=== PATIENT | female | born 1970 | race African-American/Black ===

== ENCOUNTER 2020-12-01 10:22 | Inpatient (IN) | payer OTHER ==
[2020-12-01] MEDS ORDERED: PIPERACILLIN/TAZOB 4.5 GM 4.5 GM in DEXTROSE 5%-WATER 100 ML IVPB ONE (11:44)
[2020-12-01] MEDS ORDERED: ACETAMINOPHEN 325 MG TABLET (FP) PO ONE (11:45)
[2020-12-01] MEDS ORDERED: VANCOMYCIN 1 GM in D5W (PRE-DOCKED) 1,000 MG/250 ML IVPB ONE (11:45)
[2020-12-01] MEDS ORDERED: ACETAMINOPHEN 325 MG TABLET (FP) ONE (11:57)
[2020-12-01] MEDS ORDERED: VANCOMYCIN 1 GRAM (PRE-DOCKED) 1,000 MG/250 ML BAG IVPB ONE (11:58)
[2020-12-01] MEDS ORDERED: PIPERACILLIN/TAZOB 4.5 GM 4.5 GM/100 ML BAG IVPB ONE ×2 (11:58→21:34)
[2020-12-01 13:27] LABS: BASO % 0.5 % (0-2.0); EOS % 2.3 % (0-4.5); HEMATOCRIT 30.4 % (32.4-45.2); HEMOGLOBIN 10.1 GM/dL (10.7-15.3); LYMPH % 21.2 % (8-40); MCH 29.3 pg (25.7-33.7); MCHC 33.2 g/dl (32.0-36.0); MEAN CELL VOLUME 88.2 fl (80-96); MEAN PLT VOLUME 7.9 fl (7.5-11.1); MONO % 4.4 % (3.8-10.2); NEUT % 71.6 % (42.8-82.8); PLATELET COUNT 442 K/MM3 (134-434); RBC 3.45 M/mm3 (3.60-5.2); RDW 14.6 % (11.6-15.6); WHITE BLOOD COUNT 7.1 K/mm3 (4.0-10.0)
[2020-12-01 13:38] LABS: INR 1.09 (0.83-1.09); PROTHROMBIN TIME (PATIENT) 13.4 SEC (9.7-13.0)
[2020-12-01 13:41] LABS: ACTIVATED PTT 33.5 SECONDS (25.2-36.5)
[2020-12-01 14:30] LABS: ALBUMIN 2.9 g/dl (3.4-5.0); BILIRUBIN,TOTAL 0.3 mg/dL (0.2-1); BLOOD UREA NITROGEN 21.9 mg/dL (7-18); CALCIUM 8.6 mg/dL (8.5-10.1); TOT PROT 7.5 g/dl (6.4-8.2)
[2020-12-01] MEDS: INSULIN SLIDING SCALE (NOVOLOG) 1 VIAL SQ SCH ×2 (16:38→22:02)
[2020-12-01] MEDS ORDERED: PIPERACILLIN/TAZOB 4.5 GM 4.5 GM in DEXTROSE 5%-WATER 100 ML IVPB SCH (21:00)
[2020-12-01] MEDS ORDERED: hydrALAZINE HCL 25 MG TABLET (FP) ONE ×2 (21:33→21:36)
[2020-12-01] MEDS ORDERED: GABAPENTIN 100 MG CAPSULE ONE (21:34)
[2020-12-01] MEDS ORDERED: ATORVASTATIN CA 80 MG TABLET (FP) ONE (21:34)
[2020-12-01] MEDS: PIPERACILLIN/TAZOB 4.5 GM 4.5 GM in DEXTROSE 5%-WATER 100 ML IVPB SCH (21:43)
[2020-12-01] MEDS: GABAPENTIN 100 MG CAPSULE PO SCH (22:01)
[2020-12-01] MEDS: ATORVASTATIN CA 80 MG TABLET (FP) PO SCH (22:01)
[2020-12-01] MEDS: hydrALAZINE HCL 50 MG TABLET (FP) PO SCH (22:01)
[2020-12-01] MEDS: INSULIN (LEVEMIR) 100 UNITS/ML UNITS SQ SCH (22:01)
[2020-12-02 00:27] VITALS: BMI 30.5
[2020-12-02] MEDS ORDERED: DEXTROSE 5%-WATER 100 ML IVPB ONE ×2 (05:13→12:06)
[2020-12-02] MEDS ORDERED: PIPERACILLIN/TAZOBACTAM 4.5 GM VIAL IVPB ONE ×2 (05:13→12:06)
[2020-12-02] MEDS: PIPERACILLIN/TAZOB 4.5 GM 4.5 GM in DEXTROSE 5%-WATER 100 ML IVPB SCH ×2 (05:20→13:17)
[2020-12-02] MEDS: GABAPENTIN 100 MG CAPSULE PO SCH ×4 (05:21→21:36)
[2020-12-02] MEDS: hydrALAZINE HCL 50 MG TABLET (FP) PO SCH ×3 (05:21→21:36)
[2020-12-02] MEDS: INSULIN SLIDING SCALE (NOVOLOG) 1 VIAL SQ SCH ×4 (06:08→21:38)
[2020-12-02 08:46] LABS: BASO % 1.1 % (0-2.0); EOS % 4.4 % (0-4.5); HEMATOCRIT 30.2 % (32.4-45.2); LYMPH % 28.7 % (8-40); MCH 28.9 pg (25.7-33.7); MCHC 33.2 g/dl (32.0-36.0); MEAN CELL VOLUME 87.1 fl (80-96); MEAN PLT VOLUME 7.5 fl (7.5-11.1); MONO % 6.1 % (3.8-10.2); NEUT % 59.7 % (42.8-82.8); PLATELET COUNT 397 K/MM3 (134-434); RBC 3.47 M/mm3 (3.60-5.2); RDW 14.1 % (11.6-15.6); WHITE BLOOD COUNT 4.7 K/mm3 (4.0-10.0)
[2020-12-02 09:07] LABS: POTASSIUM 4.1 mmol/L (3.5-5.1)
[2020-12-02 09:12] LABS: ALBUMIN 2.4 g/dl (3.4-5.0)
[2020-12-02 09:13] LABS: BLOOD UREA NITROGEN 15.6 mg/dL (7-18); MAGNESIUM 2.1 mg/dL (1.8-2.4)
[2020-12-02 09:16] LABS: BILIRUBIN,TOTAL 0.4 mg/dL (0.2-1); CREATININE 0.9 mg/dL (0.55-1.3); PHOSPHOROUS 3.5 mg/dL (2.5-4.9)
[2020-12-02 09:17] LABS: TOT PROT 6.9 g/dl (6.4-8.2)
[2020-12-02] MEDS: CARVEDILOL 25 MG TABLET (FP) PO SCH (09:31)
[2020-12-02] MEDS: FUROSEMIDE 40 MG TABLET (FP) PO SCH (09:31)
[2020-12-02] MEDS: ASPIRIN 81 MG CHEWABLE TABLETS PO SCH (09:31)
[2020-12-02] MEDS: NIFEdipine E.R 60 MG TABLET PO SCH (09:31)
[2020-12-02] MEDS: ASCORBIC ACID 500 MG TABLET (FP) PO SCH (09:31)
[2020-12-02] MEDS: FERROUS SO4 325 MG TABLET (FP) PO SCH (09:31)
[2020-12-02] MEDS ORDERED: NIFEdipine E.R 60 MG TABLET PO SCH (10:00)
[2020-12-02] MEDS: INSULIN (LEVEMIR) 100 UNITS/ML UNITS SQ SCH ×2 (10:16→21:37)
[2020-12-02] MEDS: ATORVASTATIN CA 80 MG TABLET (FP) PO SCH (21:36)
[2020-12-03] MEDS ORDERED: PIPERACILLIN/TAZOBACTAM 4.5 GM VIAL IVPB ONE ×2 (01:29→09:37)
[2020-12-03] MEDS ORDERED: DEXTROSE 5%-WATER 100 ML IVPB ONE ×2 (01:29→09:37)
[2020-12-03] MEDS: PIPERACILLIN/TAZOB 4.5 GM 4.5 GM in DEXTROSE 5%-WATER 100 ML IVPB SCH ×2 (02:09→09:42)
[2020-12-03] MEDS: hydrALAZINE HCL 50 MG TABLET (FP) PO SCH (06:35)
[2020-12-03] MEDS: GABAPENTIN 100 MG CAPSULE PO SCH (06:35)
[2020-12-03] MEDS: INSULIN SLIDING SCALE (NOVOLOG) 1 VIAL SQ SCH ×2 (06:36→10:03)
[2020-12-03 08:07] VITALS: TEMP 98
[2020-12-03] MEDS: CARVEDILOL 25 MG TABLET (FP) PO SCH (09:40)
[2020-12-03] MEDS: FERROUS SO4 325 MG TABLET (FP) PO SCH (09:40)
[2020-12-03] MEDS: ASPIRIN 81 MG CHEWABLE TABLETS PO SCH (09:40)
[2020-12-03] MEDS: INSULIN (LEVEMIR) 100 UNITS/ML UNITS SQ SCH (09:41)
[2020-12-03] MEDS: FUROSEMIDE 40 MG TABLET (FP) PO SCH (09:41)
[2020-12-03] MEDS: ASCORBIC ACID 500 MG TABLET (FP) PO SCH (09:42)
[2020-12-03] MEDS: NIFEdipine E.R 60 MG TABLET PO SCH (09:43)
[2020-12-03] MEDS ORDERED: PANTOPRAZOLE 20 MG TABLET PO SCH (10:00)
[2020-12-03] MEDS ORDERED: levoFLOXacin 750 MG TABLET PO ONE (11:00)
[2020-12-03 11:03] VITALS: BP 154/81; PULSE 72
== END 2020-12-03 15:47 | disposition left against medical advice (07) | DRG 344 ==
LOC: JER 10:22 → JERBED 14:47 → J6WEST-2 12-02 00:10
PROVIDERS: ADMIT Student in an Organized Health Care Education/Training Program; ATTEND Internal Medicine
DX: E11.69 Type 2 diabetes mellitus with other specified complication (principal); M86.8X7 Other osteomyelitis, ankle and foot; I11.0 Hypertensive heart disease with heart failure; L03.116 Cellulitis of left lower limb; E11.51 Type 2 diabetes mellitus with diabetic peripheral angiopathy without gangrene; I69.354 Hemiplegia and hemiparesis following cerebral infarction affecting left non-dominant side; I50.9 Heart failure, unspecified; E11.621 Type 2 diabetes mellitus with foot ulcer; L97.529 Non-pressure chronic ulcer of other part of left foot with unspecified severity; D64.9 Anemia, unspecified; Z89.422 Acquired absence of other left toe(s); E78.5 Hyperlipidemia, unspecified; Z79.4 Long term (current) use of insulin
CPT/HCPCS: 36415; 73630-TC-LT; 73718-TC-LT; 80053; 82962; 83540; 83550; 83735; 84100; 84443; 85025; 85045; 85610; 85651; 85730; 86850; 86900; 86901; 87040; 87070; 87077; 87186; 87205; 93922; 93925-TC; 99285-25; C9803; U0003